=== PATIENT | female | born 2000 | race Caucasian/White ===

== ENCOUNTER 2021-09-18 12:51 | Emergency (ER) | payer OTHER ==
[~2021-09-18] VITALS: Ht 165.1 cm; Wt 81.8 kg
[2021-09-18 13:10] VITALS: TEMP 98.2
[2021-09-18 14:28] VITALS: BP 110/70; PULSE 71
== END 2021-09-18 14:28 | disposition home or self-care (01) ==
LOC: COL.ER 12:51
DX: R59.0 Localized enlarged lymph nodes (principal); R53.81 Other malaise; F17.200 Nicotine dependence, unspecified, uncomplicated; Z20.822 Contact with and (suspected) exposure to COVID-19

== ENCOUNTER 2022-05-31 07:51 | Inpatient (IN) | payer OTHER ==
[2022-05-31] VITALS (54 sets, daily range): BP systolic 81–130; BP diastolic 44–85; PULSE 64–126; TEMP 97.7–98.6
[~2022-05-31] VITALS: Ht 165.1 cm; Wt 98.6 kg
[~2022-05-31 07:51] MED LIST: BUSPAR5 MG PO; NATURAL IRON65 MG; PRENATAL TABLET PO; PROZAC 20MG20 MG; UNISOM25 MG PO
--- NOTE | 2022-05-31 08:24 | NUR ---
0800 PATIENT HERE FORM HOME WITH COMPLAINTS CONTRACTIONS STARTED AT MIDNIGHT AND HAVE GOT CLOSER TOGETHR AND JAYSHREE INTENSE. AMNIOTRACE NEGATIVE. SVE /-2. PATIENT BREATHS/CRIES THROUGH EACH CONTRACTION. ENOURAGE PATIENT TO TAKE SLOW DEEP BREATHS AND TO TRY TO RELAX ALL MUSCLES. EFM ON FHT 120 BABY VERY ACTIVE. CONTRACTIONS 2-4 MIN AND [address]PATE FIRM. DR WINSTON CALLED AND UPDATED AND ORDERS TO MONITOR PATIENT AND HE WILL BE TO HOSPITAL IN NEXT 30 MIN TO EXAMINE.
--- NOTE | 2022-05-31 09:15 | NUR ---
0855 DR WINSTON AT BEDSIDE. SVE /-2 AROM WITH AMNIOHOOK. MEC FLUID NOTED.NO ODOR. IV STARTED IN LEFT HAND. LABS DRAWN AND IVF LR STARTED AT THIS TIME. MATTHEW HALL RN TO ASSUME CARE AT THIS TIME. REPORT GIVEN
[2022-05-31 09:21] LABS: BASO % 0.2 % (0.0-2.0); EOS # 0.1 K/mm3 (0.0-0.7); EOS % 0.7 % (0.0-4.0); GRAN # 13.2 K/mm3 (1.4-6.5); HEMATOCRIT 37.4 % (37.0-47.0); HEMOGLOBIN 12.8 g/dl (12.5-16.0); LYMPH # 1.4 K/mm3 (1.2-3.4); LYMPH % 8.9 % (20.0-51.0); MEAN CELL VOLUME 84 fl (80.0-100.0); MEAN CORPUSCULAR HEMOGLOBIN 29 pg (27-31); MEAN CORPUSCULAR HGB CONC 34 g/dl (33.0-37.0); MEAN PLATELET VOLUME 10.6 fl (7.4-10.4); MONO # 0.9 K/mm3 (0.1-0.6); MONO % 5.8 % (1.7-9.3); PLATELET COUNT 250 K/mm3 (130-400); RED BLOOD COUNT 4.44 M/mm3 (4.10-5.30); REDCELL DISTRIBUTION WIDTH-CV 13.6 % (11.5-14.5)
--- NOTE | 2022-05-31 09:37 | NUR ---
MAR LIMON AT BEDSIDE. PT TO SITTING POSITION ON EDGE OF BED FOR EPIDURAL PLACEMENT. DIFFICULTY TRACING EFM/TOCO. MATERNAL VITAL SIGNS STABLE. 0937: SINGLE SHOT PER ASHLY MANUEL. PT TOLERATED PROCEDURE WELL
--- NOTE | 2022-05-31 11:00 | NUR ---
CONTRACTIONS BEGINNING TO SPACE OUT. SVE UNCHANGED PER , /-2. VORB TO BEGIN PITOCIN PER PROTOCOL.
--- NOTE | 2022-05-31 15:00 | NUR ---
AUDIBLE DECREASE IN HEART TONES. THIS RN AT BEDSIDE. PT PLACED IN LL POSITION. DIFFICULT TO MOVE DUE TO MATERNAL HABITUS AND EPIDUDRAL/DECREASED SENSATION TO BLE. FHT'S BEGIN TO RECOVER IN LL POSITION. PITOCIN 1/2'D TO 10MU. HEART TONES BEGIN TO DECREASE AGAIN, PITOCIN SHUT OFF 1506. MODERATE VARIABILTY. LR BOLUS INFUSING. TO ROUND ON PT SHORTLY. WILL CONTINUE WITH PLAN OF CARE.
--- NOTE | 2022-05-31 16:00 | NUR ---
TO UNIT, REVIEWS STRIP. DISCUSSES POC WITH PATIENT. SVE COMPLETE/-2. THIS NURSE SUGGESTS LABORING DOWN IN LEFT LATERAL STIRRUP POSITION TO HELP DESCEND BABY FROM -2 STATION. AGREEABLE. WILL NOTIFY STAFF THAT PT IS COMPLETE AND BEGIN PUSHING SHORTLY.
--- NOTE | 2022-05-31 18:35 | NUR ---
1650: THIS NURSE BEGINS PUSHING WITH PT. HEART TONES DECREASE INTO THE 60'S/70'S. PITOCIN OFF. LR INFUSING. PT REPOSITIONED. SLOW TO RETURN TO BASELINE. INFANT APPEARS TO NOT TOLERATE PUSHING WELL. CALL TO AT THIS TIME. HE REPORTS HE IS IN ROUTE TO HOSPITAL. 1720: AT BEDSIDE. CONTINUES PUSHING WITH PATIENT. MINIMAL DESCENT WITH PUSHING. REMAINS AT BEDSIDE PUSHING WITH PT. 1800: NO DESCENT NOTED WITH PUSHING. RECURRENT DECREASED HEART TONES. MAKES DECISION AT THIS TIME TO PROCEED WITH CSECTION. PT AGREEABLE. ALL APPROPRIATE STAFF NOTIFIED. PT PREPPED FOR SURGERY AT THIS TIME. 181: REENA RN AT BEDSIDE. NURSE TO NURSE REPORT AT THIS TIME. CARE ASSUMED BY REENA AT THIS TIME. PT IN STABLE CONDITION. PT TO OR FOR PRIMARY CSECTION VIA BED.
--- NOTE | 2022-05-31 19:55 | NUR ---
FUNDUS FIRM WITH LARGE AMOUNT OF LOCHIA AND LARGE CLOT NOTED. CHUX PAD AND CLOT MEASURED AT 302MLS. WILL ADD THIS AMOUNT TO QBL.
--- NOTE | 2022-05-31 20:00 | NUR ---
Emelia OROZCO, GAUGE CHECKER IN PACU TO ASSIST THIS NURSE WITH PERICARE FOLLOWING LARGE AMOUNT OF LOCHIA AND CLOT BEGIN PASSED. DR. WINSTON ON UNIT AND NOTIFIED OF LOCHIA AND CLOT. FUNDUS CURRENTLY FIRM AT THE UMBILICUS AND SCANT BLEEDING NOTED. DR. WINSTON GIVES ORDER TO GIVE IM METHERGINE IF ANY FURTHER CLOTS OR LARGE AMOUNT OF LOCHIA NOTED AGAIN.
--- NOTE | 2022-05-31 20:15 | NUR ---
PT TO VIA BED WITH BABY AND SPOUSE. PERICARE PROVIDIED PRIOR TO LEAVING THE PACU AND ABDOMINAL BINDER APPLIED. PT ORIENTED TO ROOM. CRACKERS AND WATER PROVIDED. PT DENIES PAIN, NAUSEA OR VOMITING. RECOVERY STARTED AT 2019.
[2022-06-01 02:15] VITALS: BP 109/61; PULSE 114; TEMP 97.5
[2022-06-01 07:15] VITALS: BP 97/65; PULSE 88; TEMP 97.6
--- NOTE | 2022-06-01 08:15 | NUR ---
AT 0705, PT ASSISTED UP TO BATHROOM TO TRY TO VOID. PT DENIES FEELING THE URGE TO VOID. PT SITS IN BATHROOM FOR APPROX 10 MINUTES, REPORTS ONLY ABLE TO GET A FEW DROPS OUT AND IT AYON WHEN TRYING TO VOID. PT BACK TO BED. CHARGE NURSE NOTIFIED. AT 0740, STRAIGHT CATH PERFORMED, 100 ML URINE OUT. LUCHO CARE COMPLETE. LUCHO ICE PACK PROVIDED. PHYSICIAN NOTIFIED.
[2022-06-01 17:20] VITALS: BP 113/55; PULSE 89; TEMP 97.8
--- NOTE | 2022-06-01 18:30 | NUR ---
Report recieved. Patient ambulating in the [facility] at this time. Whiteboard upon upon patient returning to room and POC reviewed. Questions invited and answered.
[2022-06-01 19:10] VITALS: BP 103/52; PULSE 110; TEMP 97.9
--- NOTE | 2022-06-01 20:30 | NUR ---
States her right let hurts when it rubs on the bed. Assessment completed. No reddness or warm to BLE. Symetric non-pitting edema noted on BLE and symetrical. Muscle in right calf tight to touch. Patient states at this time she "is worried about a blood clot but it feels like a cramp." Offered and accepted a heating pad at this time.
[2022-06-02 07:45] VITALS: BP 96/57; PULSE 95; TEMP 97.9
--- NOTE | 2022-06-02 10:10 | NUR ---
Initial visit; Patient thanked Patent Chemist for stopping and offering congratulations and God's blessings for the of her daughter. Patent Chemist thanked patient for choosing [facility].
[2022-06-02 17:00] VITALS: BP 106/60; PULSE 95; TEMP 98.2
--- NOTE | 2022-06-02 18:45 | NUR ---
Report recieved. Resting in bed. Requests assistance with nipple shield and positioning in the football hold for breastfeed. Assisted at this time. latched well. Updated whiteboard and reviewed POC. Questions invited and answered.
[2022-06-02 20:00] VITALS: BP 111/51; PULSE 109; TEMP 98
--- NOTE | 2022-06-03 | NUR ---
Called to patient room at this time. Patient sitting on toilet and reports she feels "very big down there and it hurts when my pad touches it." Patient returned to bed and assessment completed of external genitalia. Left labia minor noted to be swollen and larger than her labia minor. Not firm to palpation. Ice pack in place. Patient states she noticed the change in discomfort the last time she was up to the bathroom.
[2022-06-03 06:49] VITALS: BP 107/64; PULSE 85
[2022-06-03] MEDS ORDERED: IBU600 MG PO (09:35)
[2022-06-03] MEDS ORDERED: ROXICODONE 55 MG/TAB PO (09:36)
--- NOTE | 2022-06-03 13:11 | NUR ---
This nurse at pt bedside to verify pt baby band to pt band. Verification, consents, and signatures verified and obtained by this nurse and pt. Pt ambulated off unit, accompanied by pt spouse with baby in carseat and belongings in tow on unit utility cart at 1215. Audible and visible click noted when pt baby carseat was placed into base.
== END 2022-06-03 12:00 | disposition home or self-care (01) | DRG 788 ==
LOC: LDRO 07:51 → OB 08:59 → LDR 08:59 → OB 20:05
PROVIDERS: ADMIT Obstetrics & Gynecology
PROC: 10D00Z1 Extraction of Products of Conception, Low, Open Approach (ICD-10-PCS; principal; 2022-05-31)
DX: O99.344 Other mental disorders complicating childbirth (principal); F32.A Depression, unspecified; Z3A.40 40 weeks gestation of pregnancy; Z37.0 Single live birth; O48.0 Post-term pregnancy; O77.0 Labor and delivery complicated by meconium in amniotic fluid; O99.02 Anemia complicating childbirth; D64.9 Anemia, unspecified; F43.10 Post-traumatic stress disorder, unspecified; F41.9 Anxiety disorder, unspecified; O99.824 Streptococcus B carrier state complicating childbirth; O99.214 Obesity complicating childbirth; O76 Abnormality in fetal heart rate and rhythm complicating labor and delivery; Z88.1 Allergy status to other antibiotic agents; Z90.89 Acquired absence of other organs; Z23 Encounter for immunization
CPT/HCPCS: J0171; J0690; J1885; J2175; J2370; J2405; J2590; J2795; J7120